=== PATIENT | female | born 1965 | race Caucasian/White ===

== ENCOUNTER 2019-10-23 18:55 | Emergency (ER) | payer MEDICAID ==
[~2019-10-23] VITALS: Ht 162.6 cm; Wt 129.3 kg
[~2019-10-23 18:55] MED LIST: ATEN-41 PO; LEVO100T9 PO
[2019-10-23 19:02] VITALS: BP_SYST 135
--- NOTE | 2019-10-23 19:16 | NUR ---
Patient to ER bed 8 to gown for evaluation. Side rails up.
--- NOTE | 2019-10-23 19:20 | NUR ---
PT [id number] presents to ED via BLS s/p mid chest pain x 30 min prior to arrival while sitting down watching tv. Skin pink dry and warm, breathing even and unlabored. No other injuries/complaints per pt/noted. Will continue to monitor.
--- NOTE | 2019-10-23 19:40 | NUR ---
ER Dr. Oro at bedside examining patient.
[2019-10-23] MEDS ORDERED: NACL 0.9% 1,000 ML IV ONE (19:50)
[2019-10-23] MEDS ORDERED: MAG HYDROX/AL HYDROX/SIMETH 30 ML, DICYCLOMINE HCL 20 MG, LIDOCAINE VISCOUS 2% 15ML (PO... PO ONE ×3 (20:00)
[2019-10-23] MEDS ORDERED: ASPIRIN 81 MG TAB.CHEW PO ONE (20:00)
[2019-10-23 20:30] LABS: BASOPHILS # (AUTO) 0.1 K/uL (0.0-0.2); BASOPHILS % (AUTO) 0.6 % (0.0-2.0); EOSINOPHILS # (AUTO) 0.2 K/uL (0.0-0.4); EOSINOPHILS % (AUTO) 2.2 % (0.0-4.0); HEMATOCRIT 43.6 % (36-48); HEMOGLOBIN 14.6 g/dL (12.0-16.0); LYMPHOCYTES # (AUTO) 1.6 K/uL (1.0-5.5); LYMPHOCYTES % (AUTO) 17.9 % (20.5-51.5); MEAN CORPUSCULAR HEMOGLOBIN 31 pg (27-31); MEAN CORPUSCULAR HGB CONC 34 % (32-36); MEAN CORPUSCULAR VOLUME 93 fL (79.0-98.0); MONOCYTES # (AUTO) 0.7 K/uL (0.0-1.0); MONOCYTES % (AUTO) 7.7 % (1.7-9.3); NEUTROPHILS # (AUTO) 6.4 K/uL (1.8-7.7); NEUTROPHILS % (AUTO) 71.6 % (40.0-70.0); PLATELET COUNT (AUTO) 364 K/uL (130-430); RED BLOOD CELL COUNT(AUTO) 4.69 MIL/uL (4.2-6.2); RED CELL DISTRIBUTION WIDTH 12.9 % (9.0-15.0)
[2019-10-23 21:01] LABS: PROTHROMBIN TIME 9.9 SECS (9.5-12.5)
[2019-10-23 21:10] LABS: CALCIUM 8.9 mg/dL (8.4-11.0); CREATININE 0.66 mg/dL (0.55-1.30); POTASSIUM 3.8 mmol/L (3.5-5.1)
[2019-10-23 21:16] LABS: ALBUMIN 3.8 g/dL (3.4-4.8); TOTAL BILIRUBIN 0.4 mg/dL (0.0-1.0)
--- NOTE | 2019-10-23 22:57 | NUR ---
Patient given written and verbal discharge instructions and verbalizes understanding. ER MD Oro discussed with patient the results and treatment provided. Patient in stable condition. ID arm band removed. Rx of Sucralfate, Pepcid given. Patient educated on pain management and to follow up with PMD. Pain Scale 0. Opportunity for questions provided and answered. Medication side effect fact sheet provided.
[2019-10-23 22:58] VITALS: BP_SYST 142
[2019-10-23 23:09] LABS: BILIRUBIN,URINE NEGATIVE (NEGATIVE); BLOOD, URINE NEGATIVE (NEGATIVE); CLARITY/URINE CLEAR (CLEAR); COLOR,URINE YELLOW (YELLOW); GLUCOSE,URINE NEGATIVE (NEGATIVE); KETONES,URINE NEGATIVE (NEGATIVE); LEUKOCYTE ESTERASE ,URINE NEGATIVE (NEGATIVE); NITRITE, URINE NEGATIVE (NEGATIVE); PROTEIN URINE NEGATIVE (NEGATIVE); UROBILINOGEN,URINE 0.2 (0.2-1.0)
== END 2019-10-23 22:58 | disposition home or self-care (01) ==
LOC: SED 18:55
DX: R07.89 Other chest pain (principal); K21.9 Gastro-esophageal reflux disease without esophagitis; E07.9 Disorder of thyroid, unspecified; J45.909 Unspecified asthma, uncomplicated; I10 Essential (primary) hypertension; Z90.710 Acquired absence of both cervix and uterus; Z85.41 Personal history of malignant neoplasm of cervix uteri; Z88.1 Allergy status to other antibiotic agents
CPT/HCPCS: 36415; 71045; 80053; 81003; 82550; 83690; 83880; 84484; 85025; 85610; 85730; 93005; 99285; J2001